=== PATIENT | female | born 1970 | race Caucasian/White ===

== ENCOUNTER 2020-06-01 05:35 | Day surgery (SDC) | payer OTHER ==
[~2020-06-01 05:35] MED LIST: LANTUS SOL100 UNIT/1; LEVO-T25 MCG PO; METFORMIN HCL500 M3 PO; TAMOXIFEN CITRA20 MG PO
== END 2020-06-01 15:30 | disposition home or self-care (01) ==
LOC: CIR.AMB 05:35
PROVIDERS: ATTEND Plastic Surgery
DX: N65.1 Disproportion of reconstructed breast (principal); Z20.828 Contact with and (suspected) exposure to other viral communicable diseases; Z90.11 Acquired absence of right breast and nipple
CPT/HCPCS: 19330; 19342; 19316; 19366; C1789